=== PATIENT | female | born 2005 | race Hispanic/Latino ===

== ENCOUNTER 2025-05-30 19:59 | Emergency (ER) | payer SELFPAY ==
[2025-05-30 21:02] LABS: Absolute Lymphocytes (CBC) 0.6 K/uL (0.7-4.9); Hematocrit 38.6 % (36.0-45.0); Hemoglobin 13.1 g/dL (12.0-15.0); MCH 30.8 pg (27.0-35.0); MCHC 33.8 g/dL (32.0-36.0); MCV 90.9 fL (80-100); MPV 7.6 fL (7.6-11.3); Nucleated RBC Absolute Count 0.0 (0-0); Nucleated Red Blood Cells % 0.0 % (0-0); RBC Red Blood Cell Count 4.25 M/uL (3.86-4.86); White Blood Count 6.90 thou/uL (4.3-10.9)
[2025-05-30 21:06] LABS: Urine Culture Reflex Order NOT NEEDED; Urine Microscopic Reflex YN ORDER UMIC
--- NOTE | 2025-05-30 21:07 | RAD REPORT ---
Procedure: Chest Single View HISTORY: Chest pain COMPARISON: none FINDINGS: The lungs appear clear of acute infiltrate.. Lungs are moderately hyperaerated No significant pleural effusion noted. The heart is normal size. IMPRESSION: Moderately hyperaerated lungs presumably indicating reactive airway disease.
[2025-05-30 21:25] LABS: ALT/SGPT 26 U/L (13-56); AST/SGOT 20 U/L (15-37); Albumin 4.4 g/dL (3.4-5.0); Albumin/Globulin Ratio 1.0 (1.1-1.8); Alkaline Phosphatase 73 U/L (45-117); Anion Gap 13.6 mEq/L (5.0-15.0); BUN Blood Urea Nitrogen 17 mg/dL (7-18); Globulin 4.2 g/dL (2.3-3.5); Glucose Level 124 mg/dL (74-106); Lipase 20 U/L (13-75); Magnesium 2.0 mg/dL (1.6-2.4); Potassium 3.6 mEq/L (3.5-5.1)
[2025-05-30 21:29] LABS: Troponin High Sensitivity < 3.0 pg/mL (<58.9)
--- NOTE | 2025-05-30 21:30 | RAD REPORT ---
EXAM: Abdominal exam Limited ultrasound CLINICAL HISTORY: Abdominal pain COMPARISON: None FINDINGS: A gallstone is not seen. Gallbladder wall not thickened. Biliary tree normal caliber IMPRESSION: No significant abnormalities displayed
[2025-05-30 22:06] LABS: Differential Total Cells Count 100; Segmented Neutrophils 82 % (40-80)
[2025-05-30 22:07] LABS: Anisocytosis SLIGHT; Blood Morphology Comment NOTED (NOT SEEN); Macrocytosis SLIGHT
[2025-05-30] MEDS ORDERED: FAMOTIDINE 20 MG/2 ML VIAL IV ONE (22:15)
[2025-05-30] MEDS ORDERED: MAGNES/ALUMIN/SIMET 30ML UCUP ONE (22:17)
[2025-05-30] MEDS ORDERED: LIDOCAINE VISCOUS 2% 10ML ORAL SOLN ONE (22:17)
--- NOTE | 2025-05-30 23:34 | EDPHYS ---
Physician Documentation [facility] Name: Jennie Lopez Age: 19 yrs Sex: Female : 2005 Arrival Date: 05/30/2025 Time: 19:59 Bed 17 Private MD: ED Physician Ilir Garcia HPI: 05/30 23:50 This 19 yrs old Female presents to ER via Ambulatory with complaints of ms3 Abdominal Pain. 23:50 19-year-old female with no past medical history presents to the emergency department ms3 chest pain and epigastric pain that becomes worse with breathing. Patient rates the discomfort an 8/10 and states it is located in the epigastric region and described as being sharp/cramping. Patient states her symptoms began yesterday night. Patient states she had an episode of emesis today. Patient endorses fatigue. Patient denies fevers or chills.. 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 - Infectious Disease History:: Denies. - Social history:: Smoking status: Patient denies any tobacco usage or history of. ROS: 23:50 Respiratory: Negative for shortness of breath, cough, wheezing, and pleuritic chest ms3 pain, 23:50 MS/Extremity: Negative for injury and deformity, Skin: Negative for injury, rash, and discoloration, 23:50 Constitutional: Positive for fatigue, Negative for body aches, chills, fever, 23:50 Cardiovascular: Positive for chest pain, 23:50 Abdomen/GI: Positive for abdominal pain, nausea and vomiting, Exam: 22:12 ECG was reviewed by the Attending Physician. ms3 23:50 Constitutional: This is a well developed, well nourished patient who is awake, alert, ms3 and in no acute distress. Cardiovascular: Regular rate and rhythm with a normal S1 and S2. No gallops, murmurs, or rubs. Normal PMI, no JVD. No pulse deficits. Respiratory: Lungs have equal breath sounds bilaterally, clear to auscultation and percussion. No rales, rhonchi or wheezes noted. No increased work of breathing, no retractions or nasal flaring. 23:50 Skin: Warm, dry with normal turgor. Normal color with no rashes, no lesions, and no evidence of cellulitis. MS/ Extremity: Pulses equal, no cyanosis. Neurovascular intact. Full, normal range of motion. 23:50 Abdomen/GI: Inspection: abdomen appears normal, Bowel sounds: normal, in all quadrants, Palpation: moderate abdominal tenderness, in the epigastric area and right upper quadrant, Vital Signs: 20:26 BP 121 / 89; Pulse 73; Resp 17; Temp 98.4; Pulse Ox 99% ; Weight 44.45 kg; Height 5 ft. me1 5 in. ; Pain 8/10; 21:56 BP 124 / 82; Pulse 77; Resp 13; Temp 98.3; Pulse Ox 100% on R/A; Pain 8/10; zm 23:07 BP 109 / 72; Pulse 63; Resp 17; Temp 98.3; Pulse Ox 100% ; Pain 3/10; bm8 20:26 Body Mass Index 16.31 (44.45 kg, 165.1 cm) me1 20:26 Pain Scale: Adult me1 21:56 Pain Scale: Adult zm 23:07 Pain Scale: Adult bm8 [place] Coma Score: 23:07 Eye Response: spontaneous(4). Motor Response: obeys commands(6). Verbal Response: bm8 oriented(5). Total: 15. MDM: 20:10 Medical Screening Exam initiated ms3 23:50 Differential diagnosis: abnormal EKG, acute myocardial infarction, chest wall pain, ms3 cholecystitis, Cholelithiasis costochondritis, gastritis, pancreatitis. HEART Score: History: Slightly Suspicious (0), ECG: Normal (0), Age: < or = 45 years (0), Risk Factors: No Risk Factors Known (0), Troponin: < or = 1 x Normal Limit (0), Total Score = 0. Data reviewed: vital signs, nurses notes, lab test result(s), EKG, radiologic studies, and as a result, I will discharge patient. I considered the following discharge prescriptions or medication management in the emergency department Medications were administered in the Emergency Department. See MAR. Independent interpretation of the following test(s) in the Emergency Department EKG: See my EKG interpretation above X-Ray: My interpretation is Chest x-ray image reviewed by me does not reveal widened mediastinum, pneumonia, pneumothorax. Counseling: I had a detailed discussion with the patient and/or guardian regarding the historical points, exam findings, and any diagnostic results supporting the discharge/admit diagnosis, lab results, radiology results, the need for outpatient follow up, to return to the emergency department if symptoms worsen or persist or if there are any questions or concerns that arise at home. Special discussion: Based on the patient's Hx, exam, and Dx evaluation, there is no indication for emergent surgery or inpatient Tx. It is understood by the patient/guardian that if the Sx's persist or worsen they need to return immediately for re-evaluation. ED course: Discussed labs, ultrasound results, chest x-ray, EKG with patient. Patient to follow-up with primary care physician in 2 to 3 days. All questions were answered. Return precautions discussed include worsening symptoms, or any other concerns. On reevaluation patient symptoms improved, patient is alert and oriented x 4, no apparent distress, nontoxic-appearing, speaking full sentences, abdominal exam benign. 05/30 20:09 Order name: CBC with Diff; Complete Time: 22:11 ms3 05/30 20:09 Order name: Test, Urine; Complete Time: 21:58 ms3 05/30 20:09 Order name: UA Rfx Srini Cult if indicated; Complete Time: 21:58 ms3 05/30 20:22 Order name: Magnesium; Complete Time: 21:58 ms3 05/30 20:22 Order name: Troponin HS; Complete Time: 21:58 ms3 05/30 21:04 Order name: Comprehensive Metabolic Panel; Complete Time: 21:58 EDMS 05/30 21:04 Order name: Lipase; Complete Time: 21:58 EDMS 05/30 21:07 Order name: Manual Differential; Complete Time: 22:11 EDMS 05/30 20:22 Order name: XRAY Chest (1 view); Complete Time: 21:58 ms3 05/30 20:22 Order name: US Abdomen Limited; Complete Time: 21:58 ms3 05/30 20:09 Order name: IV Saline Lock; Complete Time: 20:59 ms3 05/30 20:09 Order name: Labs collected and sent; Complete Time: 20:59 ms3 05/30 20:22 Order name: Cardiac monitoring; Complete Time: 20:59 ms3 05/30 20:22 Order name: EKG - Nurse/Tech; Complete Time: 20:59 ms3 05/30 20:22 Order name: IV Saline Lock; Complete Time: 20:59 ms3 05/30 20:22 Order name: O2 Per Protocol; Complete Time: 20:59 ms3 05/30 20:22 Order name: O2 Sat Monitoring; Complete Time: 20:59 ms3 EC:12 Rate is 61 beats/min. Rhythm is regular. QRS [place] is Normal. DE interval is normal. QRS ms3 interval is normal. Clinical impression: Normal ECG. Interpreted by me. Reviewed by me. Administered Medications: 22:24 Drug: GI Cocktail without - (Maalox PO 30 ml, Lidocaine Mucous Membrane 2 % 15 bm8 ml) PO once Route: PO; 23:09 Follow up: Response: No adverse reaction bm8 22:24 Drug: Famotidine IVP 20 mg IVP once; dilute with 10 mL 0.9% NaCl; give over 2 minutes bm8 Route: IVP; Site: right antecubital; 23:09 Follow up: Response: No adverse reaction bm8 Disposition Summary: 05/30/25 23:34 Discharge Ordered Notes: Location: Home ms3 Condition: Stable ms3 Diagnosis - Upper abdominal pain, unspecified ms3 - Chest pain, unspecified ms3 - Nausea with vomiting, unspecified ms3 Followup: ms3 - With: Dayo Sebastian MD - When: 2 - 3 days - Reason: Recheck today's complaints Discharge Instructions: - Discharge Summary Sheet ms3 - Abdominal Pain, Adult ms3 - Nonspecific Chest Pain, Adult ms3 - Nausea and Vomiting, Adult ms3 Forms: - Medication Reconciliation Form ms3 - Antibiotic Education ms3 - Prescription Opioid Use ms3 - Patient Portal Instructions ms3 - Leadership Thank You Letter ms3 Prescriptions: - ondansetron 4 mg Oral Tablet,disintegrating - take 1 tablet ORAL route every 8 hours; 15 tablet; Refills: 0, Product ms3 Selection Permitted - Pepcid 20 mg Oral tablet - take 1 tablet ORAL route every 12 hours for 5 days; 20 tablet; Refills: 0, ms3 Product Selection Permitted Signatures: Dispatcher [email or web address] EDTN Ilir Garcia, DO ms3 Susan Carreno, RN RN me1 Cuauhtemoc Means, RN RN bm8 Corrections: (The following items were deleted from the chart) 20: 20:09 CBC+H.LAB.BRZ ordered. EDMS EDMS 20: 20:09 Test, Urine+UC.LAB.BRZ ordered. EDMS EDMS 20: 20:09 UA Rfx Srini Cult if indicated+U.LAB.BRZ ordered. EDMS EDMS 20:23 20:23 Abdomen Limited+US.RAD.BRZ ordered. EDMS EDMS 21:03 20:09 COMPREHENSIVE METABOLIC PANEL+C.LAB.BRZ ordered. EDMS EDMS 21:03 20:09 LIPASE+C.LAB.BRZ ordered. EDMS EDMS
--- NOTE | 2025-05-30 23:34 | ER ---
Nurse's Notes [facility] Name: Jennie Lopez Age: 19 yrs Sex: Female : 2005 Arrival Date: 05/30/2025 Time: 19:59 Bed 17 Private MD: Diagnosis: Upper abdominal pain, unspecified;Chest pain, unspecified;Nausea with vomiting, unspecified Presentation: 05/30 20:26 Chief complaint: Patient states: epigastric/midsternal cp that started last night with me1 n/v. 05/25, "cramping". Coronavirus screen: Vaccine status: Patient reports receiving the 2nd dose of the covid vaccine. Ebola Screen: No symptoms or risks identified at this time. Initial Sepsis Screen: Does the patient meet any 2 criteria? No. Patient's initial sepsis screen is negative. Does the patient have a suspected source of infection? No. Patient's initial sepsis screen is negative. Risk Assessment: Do you want to hurt yourself or someone else? Patient reports no desire to harm self or others. Onset of symptoms was May 29, 2025. 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 - Infectious Disease History:: Denies. - Social history:: Smoking status: Patient denies any tobacco usage or history of. Screenin:56 [facility] ED Fall Risk Assessment (Adult) History of falling in the last 3 months, zm including since admission No falls in past 3 months (0 pts) Confusion or Disorientation No (0 pts) Intoxicated or Sedated No (0 pts) Impaired Gait No (0 pts) Mobility Assist Device Used No (0 pt) Altered Elimination No (0 pt) Score/Fall Risk Level 0 - 2 = Low Risk Oriented to surroundings, Maintained a safe environment, Educated pt \\T\\ family on fall prevention, incl call for assistance when getting out of bed, Assessed \\T\\ reinforced patient's understanding of fall precautions, Hourly rounding (assess needs \\T\\ fall precautionary measures) done, Used ambulatory aids as needed (educated on \\T\\ assisted with), Used gait belt as appropriate. Abuse screen: Denies threats or abuse. Nutritional screening: No deficits noted. Tuberculosis screening: No symptoms or risk factors identified. Assessment: 21:56 Reassessment: Patient and/or family updated on plan of care and expected duration. Pain zm level reassessed. Patient states symptoms have not improved. General: Appears in no apparent distress. uncomfortable, Behavior is calm, cooperative. Pain: Complains of pain in epigastric area Pain currently is 7 out of 10 on a pain scale. Quality of pain is described as crampy, Is intermittent. Neuro: No deficits noted. Level of Consciousness is awake, alert, obeys commands, Oriented to person, place, time, situation. Cardiovascular: No deficits noted. Capillary refill < 3 seconds in bilateral fingers Chest pain is denied. Respiratory: No deficits noted. Airway is patent. GI:. GI: Abdomen is flat, non-distended, Abd is soft and non tender X 4 quads. 21:56 GI: Bowel sounds present X 4 quads. zm 23:07 Reassessment: Patient appears in no apparent distress at this time. Patient and/or bm8 family updated on plan of care and expected duration. Pain level reassessed. Patient is alert, oriented x 3, equal unlabored respirations, skin warm/dry/pink. pt states that the medication helped for a little bit but the pain is starting to come back. Patient states feeling better. Patient states symptoms have improved. Vital Signs: 20:26 BP 121 / 89; Pulse 73; Resp 17; Temp 98.4; Pulse Ox 99% ; Weight 44.45 kg; Height 5 ft. me1 5 in. ; Pain 8/10; 21:56 BP 124 / 82; Pulse 77; Resp 13; Temp 98.3; Pulse Ox 100% on R/A; Pain 8/10; zm 23:07 BP 109 / 72; Pulse 63; Resp 17; Temp 98.3; Pulse Ox 100% ; Pain 3/10; bm8 20:26 Body Mass Index 16.31 (44.45 kg, 165.1 cm) me1 20:26 Pain Scale: Adult me1 21:56 Pain Scale: Adult zm 23:07 Pain Scale: Adult bm8 [place] Coma Score: 23:07 Eye Response: spontaneous(4). Motor Response: obeys commands(6). Verbal Response: bm8 oriented(5). Total: 15. ED Course: 20:02 Patient arrived in ED. im 20:09 Ilir Garcia DO is Attending Physician. ms3 20:27 Triage completed. me1 20:27 Arm band placed on Patient placed in an exam room. me1 20:34 Cuauhtemoc Means, RN is Primary Nurse. bm8 20:54 XRAY Chest (1 view) In Process Unspecified. EDMS 20:58 Initial lab(s) drawn, by me, sent to lab. Urine collected: clean catch specimen, clear, zm janet colored, EKG done, by ED staff, reviewed by Ilir Garcia DO. Inserted saline lock: 20 gauge in right antecubital area, using aseptic technique. Blood collected. Flushed with 10 mL NS. 20:59 Magnesium Sent. zm 20:59 Troponin HS Sent. zm 20:59 UA Rfx Srini Cult if indicated Sent. zm 20:59 CBC with Diff Sent. zm 20:59 Test, Urine Sent. zm 21:06 US Abdomen Limited In Process Unspecified. EDMS 21:56 Patient has correct armband on for positive identification. Placed in gown. Bed in low zm position. Call light in reach. Side rails up X2. Adult w/ patient. Client placed on continuous cardiac and pulse oximetry monitoring. NIBP monitoring applied. court monitor on. Pulse ox on. NIBP on. Door closed. Noise minimized. Lights dimmed. Warm blanket given. Verbal reassurance given. Head of bed lowered. 23:33 Dayo Sebastian MD is Referral Physician. ms3 23:50 Provided Education on: post ER care. zm 23:50 No provider procedures requiring assistance completed. IV discontinued, intact, zm bleeding controlled, No redness/swelling at site. Pressure dressing applied. Administered Medications: 22:24 Drug: GI Cocktail without - (Maalox PO 30 ml, Lidocaine Mucous Membrane 2 % 15 bm8 ml) PO once Route: PO; 23:09 Follow up: Response: No adverse reaction bm8 22:24 Drug: Famotidine IVP 20 mg IVP once; dilute with 10 mL 0.9% NaCl; give over 2 minutes bm8 Route: IVP; Site: right antecubital; 23:09 Follow up: Response: No adverse reaction bm8 Medication: 21:56 VIS not applicable for this client. Outcome: 23:34 Discharge ordered by . ms3 23:50 Discharged to home ambulatory, with family, 23:50 Condition: stable 23:50 Discharge instructions given to patient, family, Instructed on discharge instructions, follow up and referral plans. no drinking with medication, medication usage, safety practices, Demonstrated understanding of instructions, follow-up care, medications, Prescriptions given X 2, 23:52 Patient left the ED. Signatures: Dispatcher [employer] EDMS Ilir Garcia DO DO ms3 Maggie Bowens, RN RN Corrine Bush Michelle, SHERMAN RN va1 Cuauhtemoc Means RN RN bm8 Corrections: (The following items were deleted from the chart) 21:03 20:59 COMPREHENSIVE METABOLIC PANEL+C.LAB.BRZ drawn and sent. EDMS 21:03 20:59 LIPASE+C.LAB.BRZ drawn and sent. EDMS
[2025-05-31 04:46] VITALS: TEMP 98.3; O2SAT 100
[2025-05-31 04:47] VITALS: BP 109/72
== END 2025-05-30 23:52 | disposition home or self-care (01) ==
LOC: ER 19:59
DX: R10.13 Epigastric pain (principal); R07.9 Chest pain, unspecified; R11.2 Nausea with vomiting, unspecified
CPT/HCPCS: 36415; 71045; 76705; 80053; 81001; 81025; 83690; 83735; 84484; 85025; 93005; 96374; 99285